=== PATIENT | female | born 1970 | race Caucasian/White ===

== ENCOUNTER 2021-06-30 15:47 | Inpatient (IN) | payer OTHER ==
[2021-06-30 17:29] VITALS: BMI 38.7
[2021-06-30] MEDS ORDERED: MAGNESIUM HYDROX 2400MG/30ML ORAL SUSPENSION 30 ML CUP PO PRN (18:10)
[2021-06-30] MEDS ORDERED: MAG HYDROX/AL HYDROX/SIMETH 30 ML UNIT-DOSE CUP PO PRN (18:10)
[2021-06-30] MEDS ORDERED: IBUPROFEN 400 MG TABLET (FP) PO PRN (18:10)
[2021-06-30] MEDS ORDERED: MAGNESIUM CITRATE 300 ML BOTTLE PO PRN (18:10)
[2021-06-30] MEDS ORDERED: MENTHOL/PHENOL 1 EACH UD MM PRN (18:10)
[2021-06-30] MEDS ORDERED: ACETAMINOPHEN 325 MG TABLET (FP) PO PRN ×2 (18:10)
[2021-06-30] MEDS ORDERED: NICOTINE POLACRILEX 2 MG GUM BUC PRN (18:10)
[2021-06-30] MEDS ORDERED: BISMUTH SUBSALICYLATE 524 MG/30 ML PO PRN (18:10)
[2021-06-30] MEDS ORDERED: ONDANSETRON *ODT* 4 MG TABLET SL PRN (18:10)
[2021-06-30] MEDS ORDERED: cloNIDine HCL 0.1 MG TABLET PO PRN (18:17)
[2021-06-30] MEDS ORDERED: methaDONE HCL 10 MG TABLET (FOR DETOX USE ONLY) PO ONE (18:17)
[2021-06-30] MEDS ORDERED: MELATONIN 5 MG TABLETS PO SCH (22:00)
[2021-06-30] MEDS: METHOCARBAMOL 500 MG TABLET PO PRN (22:32)
[2021-06-30] MEDS: THIAMINE HCL 100 MG TABLET (FP) PO SCH (22:32)
[2021-07-01] MEDS ORDERED: methaDONE HCL 10 MG TABLET (FOR DETOX USE ONLY) ONE (09:49)
[2021-07-01] MEDS: METHOCARBAMOL 500 MG TABLET PO PRN (10:18)
[2021-07-01] MEDS: PRENATAL VITAMINS W/ FOLIC ACID TABLET (FP) PO SCH (10:18)
[2021-07-01] MEDS: NICOTINE 21 MG/24 HOURS TOPICAL PATCH TD SCH (10:23)
[2021-07-01] MEDS ORDERED: FLU VACC QS2021-22(6MOS UP)/PF 60 MCG/0.5 ML SYRINGE IM ONE (13:00)
[2021-07-01 14:39] LABS: HEMATOCRIT 45.1 % (32.4-45.2); HEMOGLOBIN 15.1 GM/dL (10.7-15.3); MCH 29.7 pg (25.7-33.7); MCHC 33.4 g/dl (32.0-36.0); MEAN CELL VOLUME 89.1 fl (80-96); MEAN PLT VOLUME 8.4 fl (7.5-11.1); PLATELET COUNT 232 10^3/uL (134-434); RBC 5.07 M/mm3 (3.60-5.2); RDW 14.2 % (11.6-15.6); WHITE BLOOD COUNT 8.7 K/mm3 (4.0-10.0)
[2021-07-01 15:05] LABS: ALBUMIN 3.2 g/dl (3.4-5.0)
[2021-07-01 15:06] LABS: BILIRUBIN,TOTAL 0.3 mg/dL (0.2-1)
[2021-07-01 15:07] LABS: TOT PROT 6.9 g/dl (6.4-8.2)
[2021-07-01 15:08] LABS: CREATININE 0.7 mg/dL (0.55-1.3)
[2021-07-01 15:41] LABS: HIV INTERPRETATION NEGATIVE (NEGATIVE)
[2021-07-01] MEDS: metFORMIN HCL 500 MG TABLET (FP) PO SCH (17:17)
[2021-07-01] MEDS: diazePAM 5 MG TABLET PO PRN (22:10)
[2021-07-01] MEDS: THIAMINE HCL 100 MG TABLET (FP) PO SCH (22:10)
[2021-07-01] MEDS: QUEtiapine FUMARATE 100 MG TABLET (FP) PO SCH (22:10)
[2021-07-02] MEDS: metFORMIN HCL 500 MG TABLET (FP) PO SCH ×2 (06:02→17:18)
[2021-07-02] MEDS ORDERED: methaDONE HCL 10 MG TABLET (FOR DETOX USE ONLY) PO ONE (10:00)
[2021-07-02] MEDS: PRENATAL VITAMINS W/ FOLIC ACID TABLET (FP) PO SCH (10:42)
[2021-07-02] MEDS: NICOTINE 21 MG/24 HOURS TOPICAL PATCH TD SCH (10:43)
[2021-07-02] MEDS: diazePAM 5 MG TABLET PO PRN ×2 (10:43→23:20)
[2021-07-02] MEDS: METHOCARBAMOL 500 MG TABLET PO PRN (17:47)
[2021-07-02] MEDS: QUEtiapine FUMARATE 100 MG TABLET (FP) PO SCH (22:55)
[2021-07-02] MEDS: THIAMINE HCL 100 MG TABLET (FP) PO SCH (22:55)
[2021-07-03] MEDS: metFORMIN HCL 500 MG TABLET (FP) PO SCH ×2 (06:39→17:45)
[2021-07-03] MEDS: METHOCARBAMOL 500 MG TABLET PO PRN ×2 (06:40→17:46)
[2021-07-03] MEDS ORDERED: methaDONE HCL 10 MG TABLET (FOR DETOX USE ONLY) ONE (09:56)
[2021-07-03] MEDS: diazePAM 5 MG TABLET PO PRN (11:09)
[2021-07-03] MEDS: PRENATAL VITAMINS W/ FOLIC ACID TABLET (FP) PO SCH (11:11)
[2021-07-03] MEDS: NICOTINE 21 MG/24 HOURS TOPICAL PATCH TD SCH (11:11)
[2021-07-03] MEDS: THIAMINE HCL 100 MG TABLET (FP) PO SCH (22:27)
[2021-07-03] MEDS: QUEtiapine FUMARATE 100 MG TABLET (FP) PO SCH (22:27)
[2021-07-04] MEDS: metFORMIN HCL 500 MG TABLET (FP) PO SCH (06:22)
[2021-07-04] MEDS: METHOCARBAMOL 500 MG TABLET PO PRN (09:21)
[2021-07-04] MEDS: NICOTINE 21 MG/24 HOURS TOPICAL PATCH TD SCH (09:22)
[2021-07-04] MEDS: PRENATAL VITAMINS W/ FOLIC ACID TABLET (FP) PO SCH (09:22)
[2021-07-04] MEDS ORDERED: methaDONE HCL 10 MG TABLET (FOR DETOX USE ONLY) PO ONE (10:00)
[2021-07-04 13:35] VITALS: BP 116/73; PULSE 77; TEMP 97.1
== END 2021-07-04 15:15 | disposition home or self-care (01) | DRG 773 ==
LOC: YASAS 15:47 → Y6N 19:14
PROVIDERS: ADMIT Allergy & Immunology; ATTEND Allergy & Immunology
PROC: HZ2ZZZZ Detoxification Services for Substance Abuse Treatment (ICD-10-PCS; principal; 2021-06-30)
DX: F11.23 Opioid dependence with withdrawal (principal); F10.20 Alcohol dependence, uncomplicated; F12.20 Cannabis dependence, uncomplicated; F17.213 Nicotine dependence, cigarettes, with withdrawal; F41.9 Anxiety disorder, unspecified; F19.24 Other psychoactive substance dependence with psychoactive substance-induced mood disorder; F19.280 Other psychoactive substance dependence with psychoactive substance-induced anxiety disorder; F19.282 Other psychoactive substance dependence with psychoactive substance-induced sleep disorder; I10 Essential (primary) hypertension; E11.9 Type 2 diabetes mellitus without complications; Z62.810 Personal history of physical and sexual abuse in childhood; Z79.84 Long term (current) use of oral hypoglycemic drugs; Z56.0 Unemployment, unspecified
CPT/HCPCS: 36415; 80053; 82962; 85027; 86780; 87389; 90686; 93005; 93010; C9803; G0008; J0735; U0003; U0005